=== PATIENT | female | born 1980 | race Caucasian/White ===

== ENCOUNTER 2017-01-12 16:12 | Emergency (ER) | payer OTHER ==
--- NOTE | 2017-01-12 17:02 | DIAGNOSTIC IMAGING REPORT ---
PROCEDURE: XR HUMERUS - LEFT INDICATION: TRAUMA/INJURY TECHNIQUE: Three views left humerus COMPARISON: None. FINDINGS: There is a complete fracture through the mid shaft of the humerus. Side plates and screws are in place from previous distal humeral injury. IMPRESSION: 1. Complete fracture through the mid shaft left humerus
--- NOTE | 2017-01-12 18:08 | ED NURSING NOTES ---
Clinical Report - Nurses [facility] [place] [address] 01/12/2017 16:12 Patient: HU GARDNER TRIAGE Triage time 16:20 Jan 12 2017. Chief Complaint: INJURY TO THE LEFT ARM. Alert. No acute distress. SEPSIS SCREEN: Sepsis Screen. Negative (no infection suspected/documented). --16:25 Damon Escobar R.N. 16:20 01/12/17. BP: 122/80. HR: 60. RR: 16. O2 saturation: 100% on room air. Temp: 97.5 F. Pain level now: 05/12. --16:25 Damon Escobar R.N. Acuity: LEVEL 3. --16:25 Damon Escobar R.N. Weight: 77.1 kg stated. Height/Length: 67 inches Per Patient. BMI: 26.6. --16:20 Damon Escobar R.N. Medications Chantix Oral. --16:23 Damon Escobar R.N. Allergies No Known Drug Allergy. --16:23 Damon Escobar R.N. History Arrived by private vehicle. Historian: patient. Accompanied by friend. This occurred just prior to arrival and today. Mechanism of injury: fell. ( Pt fell from her horse onto her L arm. She impacted with the dirt. She presents today in obvious pain, guarded, her L arm is straight, held against her body. Pt reports a previous fracture to her humerus which required surgical intervention in January of 1999.). She has had numbness. PAST MEDICAL HX: Tetanus status: unknown. Immunizations: status is unknown. Last normal menstrual period now. SOCIAL HX: Light tobacco smoker (cigarette). Occasional alcohol use. History of drug use: marijuana. The patient was not exposed to MRSA. ABUSE ASSESSMENT: Abuse assessment: The patient was asked "Do you feel safe in your home?". No report of abuse. SELF HARM ASSESSMENT: A self harm assessment was performed. The patient answered "no" to the question "Are you here because you tried to hurt yourself?" and "Have you ever tried to hurt yourself before today?". FALL RISK ASSESSMENT: Fall risk assessment completed. No fall risk identified. NUTRITIONAL RISK ASSESSMENT: The nutritional risk assessment revealed no deficiencies. FUNCTIONAL ASSESSMENT: Functional assessment: no impairments noted. LEARNING NEEDS ASSESSMENT: The learning needs assessment revealed no barriers. SKIN INTEGRITY ASSESSMENT: Skin integrity risk assessment completed. No skin integrity risk identified. --16:25 Damon Escobar R.N. Interventions ID band on patient. To treatment room. --16:25 Damon Escobar R.N. PHYSICAL ASSESSMENT Ambulatory to room. GENERAL / NEURO / PSYCH: Oriented X 4. Appears in pain. She has had weakness. She has had numbness. EXTREMITIES: Capillary refill is less than 2 seconds in the extremities. Extremity pulses are within normal limits. Left arm. SKIN: Skin is warm and dry. She has an medium-sized superficial abrasion (L posterior hip). --16:28 Damon Escobar R.N. NURSING PROGRESS NOTES The plan of care for this patient has been created. Patient gowned. Reassurance given. Two patient identifiers checked. Call light placed in reach. Side rails up x 2. Bed placed in lowest position. Patient ready for evaluation- PA notified. ( PA at bedside.). --16:28 Damon Escobar R.N. 16:37 01/12/2017 Phenergan (Promethazine HCl) IM 12.5 mg given. Given in the right deltoid. Allergies verified, confirmed 5 rights and sedative warning given to the patient. --16:37 Damon Escobar R.N. 16:40 01/12/2017 Dilaudid (HYDROmorphone HCl PF) IM 2 mg given. Given in the right ventral gluteus. Allergies verified, confirmed 5 rights and sedative warning given to the patient. --16:40 Damon Escobar R.N. ( XR at bedside, pain and nausea medications given, Pt tolerated well.). --16:43 Damon Escobar R.N. 16:57 01/12/2017 Site #1 started via IV in the right antecubital space with an 20g angiocath, with aseptic technique and good blood return; one attempt. Saline lock flushed with 10 mL saline. --17:03 Damon Escobar R.N. 17:03 01/12/2017 Phenergan IM Response: no adverse reaction pain is improving. --17:03 Damon Escobar R.N. 17:03 01/12/2017 Dilaudid IM Response: no adverse reaction pain is improving. --17:03 Damon Escobar R.N. ( IVIP, Pt resting in bed, states she is comfortable position-sandoval, waiting for pain medications to give her more relief before she is splinted. Pt denies needs, Pt has contacted her mother.). --17:04 Damon Escobar R.N. 17:31 01/12/17. Pain level now: 03/12. --17:31 Damon Escobar R.N. late entry - 17:30. ( Tech at bedside splinting Pt.). --17:53 Damon Escobar R.N. Long arm sugar tong fiberglass upper extremity splint applied to left arm, elbow and forearm by tech. Distal pulses intact, sensation intact and motor within normal limits. Sling applied to left arm by submarine cable equipment technician. --18:05 Lisandra Ayala, FLASH Tech1 18:23 01/12/2017 Dilaudid (HYDROmorphone HCl PF) IVP 1 mg given over 2 minute(s) via site #1. Allergies verified, confirmed 5 rights and sedative warning given to the patient. IV patency established. IV site checked: no pain, redness, or swelling. IV flushed thoroughly pre- and post-medication administration. IVP given by RN. --18:23 Damon Escobar R.N. 18:30 01/12/2017 Site #1 removed upon discharge. Bandaid applied. --18:35 Damon Escobar R.N. DISPOSITION / DISCHARGE 17:57 01/12/17. BP: 125/81. HR: 68. RR: 16. O2 saturation: 97% on room air. Pain level now: 04/12. --17:57 Damon Escobar R.N. Departure time: 18:35 Jan 12 2017. Condition at departure: improved and stable. The goals identified in the patient's plan of care were met. No learning barriers present. Discharge instructions provided and reviewed with the patient and parent. Reviewed warnings (Pt instructed not to drive or consume ETOH while taking Percocet.). Reviewed medication(s) side effects, precautions, dosing and course information. Prescription(s) given to the patient (Percocet 5mg/325 and Zofran ODT 4 mg). Reviewed referral to an orthopedic surgeon for followup (in 7 days). Patient and parent verbalized understanding. Written instructions provided in Panamanian. The patient was discharged home and accompanied by parent. She left the Emergency Department ambulatory and via private vehicle. Parent driving. ( Pt dc'd in stable condition, VSS, ambulatory, pain controlled, Pt's mother is at bedside and is her ride home, pain medication administered prior to DC as ordered. No adverse response.). --18:35 Damon Escobar R.N. 18:36 01/12/17. Temp: deferred. --18:36 Damon Escobar R.N. Locked/Released at 01/13/2017 0:10 by Damon Escobar R.N.
--- NOTE | 2017-01-12 18:08 | ED ORDER SUMMARY ---
..... Patient: HU GARDNER OrderSheet [facility] VisitID: [id number] [address] [place] [address] 36y, F Registration Date/Time: 01/12/2017 ORDER SHEET Weight: 77.1 kg (stated) Allergies: No Known Drug Allergy GENERAL ORDERS: Elbow 3 or 4V Left Urgent (16:29 01/12/2017 EKoroleva P.A.-C) (Ack 16:31 PWeiler ER Tech1) (16:41 MCook R.N.) Humerus Left Urgent (16:43 01/12/2017 EKoroleva P.A.-C) (Ack 16:47 PWeiler ER Tech1) (17:02 MCook R.N.) Splint (UE) (Left) (long arm) (17:07 01/12/2017 EKoroleva P.A.-C) (17:30 MCook R.N.) MEDICATION ORDERS: Dilaudid IM 2 mg (HIGH ALERT MEDICATION, NOW) (16:29 01/12/2017 EKoroleva P.A.-C) (16:40 MCook R.N.) Phenergan IM 12.5 mg (HIGH ALERT MEDICATION, NOW) (16:29 01/12/2017 EKoroleva P.A.-C) (16:37 MCook R.N.) IV FLUIDS: Dilaudid IV 1 mg (HIGH ALERT MEDICATION, NOW) (18:06 01/12/2017 EKoroleva P.A.-C) (Ack 18:12 MCook R.N.) (18:23 MCook R.N.) ORDER SHEET NOTES: [Electronically signed by Ayanna AlvarezAMalia-C (18:54 01/12/2017)] [Electronically signed by Damon Escobar R.N. (00:10 01/13/2017)] [Electronically locked/signed by Damon Escobar R.N. (00:10 01/13/2017)]
--- NOTE | 2017-01-12 18:08 | ED ORDER SUMMARY ---
..... Patient: HU GARDNER OrderSheet [facility] VisitID: [id number] [address] [place] [address] 36y, F Registration Date/Time: 01/12/2017 ORDER SHEET Weight: 77.1 kg (stated) Allergies: No Known Drug Allergy GENERAL ORDERS: Elbow 3 or 4V Left Urgent (16:29 01/12/2017 EKoroleva P.A.-C) (Ack 16:31 PWeiler ER Tech1) (16:41 MCook R.N.) Humerus Left Urgent (16:43 01/12/2017 EKoroleva P.A.-C) (Ack 16:47 PWeiler ER Tech1) (17:02 MCook R.N.) Splint (UE) (Left) (long arm) (17:07 01/12/2017 EKoroleva P.A.-C) (17:30 MCook R.N.) MEDICATION ORDERS: Dilaudid IM 2 mg (HIGH ALERT MEDICATION, NOW) (16:29 01/12/2017 EKoroleva P.A.-C) (16:40 MCook R.N.) Phenergan IM 12.5 mg (HIGH ALERT MEDICATION, NOW) (16:29 01/12/2017 EKoroleva P.A.-C) (16:37 MCook R.N.) IV FLUIDS: Dilaudid IV 1 mg (HIGH ALERT MEDICATION, NOW) (18:06 01/12/2017 EKoroleva P.A.-C) (Ack 18:12 MCook R.N.) (18:23 MCook R.N.) ORDER SHEET NOTES: [Electronically signed by Ayanna AlvarezAMalia-C (18:54 01/12/2017)] [Electronically signed by Damon Escobar R.N. (00:10 01/13/2017)] [Electronically locked/signed by Damon Escobar R.N. (00:10 01/13/2017)]
--- NOTE | 2017-01-12 18:08 | ED CLINICAL REPORT ---
Clinical Report - Physicians/Mid Levels [facility] [address] [place], [place] [address] 01/12/2017 16:12 [id number] Time Seen: 16:35 Hari 12 2016. Arrived- By private vehicle. Historian- patient. HISTORY OF PRESENT ILLNESS Chief Complaint: Injury to the left arm. The injury happened just prior to arrival. Fell (from horse). She sustained a direct blow. Patient is experiencing severe pain. Patient denies injury to the head. ( fell from a posterior exam to the left side, patient was wearing a helmet and denies any injury to her head or LOC. NO sob/ abd pain chest pain. Has been ambulatory .). REVIEW OF SYSTEMS No numbness. All systems otherwise negative, except as recorded above. PAST HISTORY The patient's dominant hand is the right. She has had a prior injury to the same area (surgical fx). Problems: Contusion. Laceration. Tetanus Status. Immunizations. ADHD - Attention Deficit Hyperactivity Disorder. Additional Surgeries: Broken humerus surgery. Medications: Chantix Oral. Allergies: No Known Drug Allergy. SOCIAL HISTORY Smoker- current status unknown. Alcohol use. History of drug use: marijuana. ADDITIONAL NOTES The nursing notes have been reviewed. PHYSICAL EXAM Vital Signs: 01/12/2017 16:20 BP: 122/80. HR: 60. RR: 16. O2 saturation: 100%. Temp: 97.5 F. Pain level now: 10/10. Appearance: Alert. No acute distress. Head: Head atraumatic. Neck: Normal inspection. Neck supple. CVS: Normal heart rate and rhythm. Heart sounds normal. Respiratory: No respiratory distress. Breath sounds normal. No chest wall injury or accessory muscle use. Skin: Skin warm. Normal skin color. Extremities: No signs of infection present in the upper extremities. Left scapula area: No tenderness or swelling. Left clavicle area. No swelling or laceration. Left arm: moderate tenderness and swelling located in the medial and lateral aspect of arm. Neurovascular intact distally. No puncture wound or deformity. Left forearm. Neurovascular intact distally. No swelling. Left wrist. No swelling. No tenderness, swelling or ecchymosis. (good distal ns). Neuro, Vascular and Tendons: Vascular status intact. Capillary refill not prolonged. Sensation intact. Motor intact. Tendon function intact. No tendon injury seen. Neuro: Oriented X 3. No motor deficit. No sensory deficit. LABS, X-RAYS, AND EKG Lt Humerus X-ray: (IMPRESSION: 1. Complete fracture through the mid shaft left humerus Electronically Final signed by:Mehdi Swain MD 01/12/2017 5:03:15 PM). PROGRESS AND PROCEDURES PROCEDURES (Reverse sugar tong on Left side: ns intact, sling placed by tech, checked by me.). Course of Care: patient with a left humerus fracture, discussed the case with , applications support engineer for ortho, who recommends outpatient f/u in 7 days. patient with no other injuries, full range of motion of the hip, no signs of injury to the head, negative neuro exam, abdomen and chest are soft non tender with no signs of injury. Patient given Percocet. Patient here with mom. Splint applied. Patient was in significant amount of pain, was given IM Dilaudid medication upon arrival. 01/12/2017 17:57 BP: 125/81. HR: 68. RR: 16. O2 saturation: 97%. Pain level now: 9/10. 01/12/2017 17:31 Pain level now: 8/10. Patient is stable. Physical exam findings are improved. Symptoms better. Patient/family counseled. Disposition: Discharged. Condition: good. CLINICAL IMPRESSION Closed displaced transverse fracture of the shaft of the left humerus. Fall (From Horse). INSTRUCTIONS Apply ice. Wear sling and fiberglass splint. (call for an appointment to be made in 7 days). Prescription Medications: Percocet 5 mg/325 mg: take 1 tablet orally every 6 hours as needed for pain. Dispense thirty (30). No refill. Substitution is permissible. Zofran ODT 4 mg: take 1 orally every 6 hours for 3 days. Dispense ten (10). No refill. Substitution is permissible. [facility]-up with: [facility], , [address], , [place], [id number] Follow up in seven days. (Electronically signed by KorAyanna rivera P.A.-C 01/12/2017 18:54)
--- NOTE | 2017-01-12 18:08 | ED CLINICAL REPORT ---
Clinical Report - Physicians/Mid Levels [facility] [address] [place], [place] [address] 01/12/2017 16:12 Patient: HU GARDNER [facility] [id number] Time Seen: 16:35 Hari 12 2016. Arrived- By private vehicle. Historian- patient. HISTORY OF PRESENT ILLNESS Chief Complaint: Injury to the left arm. The injury happened just prior to arrival. Fell (from horse). She sustained a direct blow. Patient is experiencing severe pain. Patient denies injury to the head. ( fell from a posterior exam to the left side, patient was wearing a helmet and denies any injury to her head or LOC. NO sob/ abd pain chest pain. Has been ambulatory .). REVIEW OF SYSTEMS No numbness. All systems otherwise negative, except as recorded above. PAST HISTORY The patient's dominant hand is the right. She has had a prior injury to the same area (surgical fx). Problems: Contusion. Laceration. Tetanus Status. Immunizations. ADHD - Attention Deficit Hyperactivity Disorder. Additional Surgeries: Broken humerus surgery. Medications: Chantix Oral. Allergies: No Known Drug Allergy. SOCIAL HISTORY Smoker- current status unknown. Alcohol use. History of drug use: marijuana. ADDITIONAL NOTES The nursing notes have been reviewed. PHYSICAL EXAM Vital Signs: 01/12/2017 16:20 BP: 122/80. HR: 60. RR: 16. O2 saturation: 100%. Temp: 97.5 F. Pain level now: 10/10. Appearance: Alert. No acute distress. Head: Head atraumatic. Neck: Normal inspection. Neck supple. CVS: Normal heart rate and rhythm. Heart sounds normal. Respiratory: No respiratory distress. Breath sounds normal. No chest wall injury or accessory muscle use. Skin: Skin warm. Normal skin color. Extremities: No signs of infection present in the upper extremities. Left scapula area: No tenderness or swelling. Left clavicle area. No swelling or laceration. Left arm: moderate tenderness and swelling located in the medial and lateral aspect of arm. Neurovascular intact distally. No puncture wound or deformity. Left forearm. Neurovascular intact distally. No swelling. Left wrist. No swelling. No tenderness, swelling or ecchymosis. (good distal ns). Neuro, Vascular and Tendons: Vascular status intact. Capillary refill not prolonged. Sensation intact. Motor intact. Tendon function intact. No tendon injury seen. Neuro: Oriented X 3. No motor deficit. No sensory deficit. LABS, X-RAYS, AND EKG Lt Humerus X-ray: (IMPRESSION: 1. Complete fracture through the mid shaft left humerus Electronically Final signed by:Mehdi Swain MD 01/12/2017 5:03:15 PM). PROGRESS AND PROCEDURES PROCEDURES (Reverse sugar tong on Left side: ns intact, sling placed by tech, checked by me.). Course of Care: patient with a left humerus fracture, discussed the case with , disability liaison officer for ortho, who recommends outpatient f/u in 7 days. patient with no other injuries, full range of motion of the hip, no signs of injury to the head, negative neuro exam, abdomen and chest are soft non tender with no signs of injury. Patient given Percocet. Patient here with mom. Splint applied. Patient was in significant amount of pain, was given IM Dilaudid medication upon arrival. 01/12/2017 17:57 BP: 125/81. HR: 68. RR: 16. O2 saturation: 97%. Pain level now: 9/10. 01/12/2017 17:31 Pain level now: 8/10. Patient is stable. Physical exam findings are improved. Symptoms better. Patient/family counseled. Disposition: Discharged. Condition: good. CLINICAL IMPRESSION Closed displaced transverse fracture of the shaft of the left humerus. Fall (From Horse). INSTRUCTIONS Apply ice. Wear sling and fiberglass splint. (call for an appointment to be made in 7 days). Prescription Medications: Percocet 5 mg/325 mg: take 1 tablet orally every 6 hours as needed for pain. Dispense thirty (30). No refill. Substitution is permissible. Zofran ODT 4 mg: take 1 orally every 6 hours for 3 days. Dispense ten (10). No refill. Substitution is permissible. Follow-up with: [facility], , [address], , [place], [address] Follow up in seven days. (Electronically signed by KorAyanna rivera P.A.-C 01/12/2017 18:54)
--- NOTE | 2017-01-13 00:11 | ED DISCHARGE INSTRUCTIONS ---
Patient: HU GARDNER General Instructions [facility] VisitID: [id number] [address] [place] [address] 36y, F Registration Date/Time: 01/12/2017 Closed displaced transverse fracture of the shaft of the left humerus. Fall (From Horse). INSTRUCTIONS Apply ice. Wear sling and fiberglass splint. (call for an appointment to be made in 7 days). Prescription Medications: Percocet 5 mg/325 mg: take 1 tablet orally every 6 hours as needed for pain. Dispense thirty (30). No refill. Substitution is permissible. Zofran ODT 4 mg: take 1 orally every 6 hours for 3 days. Dispense ten (10). No refill. Substitution is permissible. Follow-up with: [facility], , [address], [place], [id number] Follow up in seven days. ADDITIONAL INFORMATION Mechanical Fall You have had a fall today. It appears that the cause is mechanical. That means that you slipped, tripped or lost your balance. If your fall had been due to fainting or a seizure, further tests would be required. Home Care: Rest today and resume your normal activities when you are feeling back to normal. If you were injured during the fall, follow the advice from your doctor regarding care of your injury. You may use acetaminophen (Tylenol) or ibuprofen (Motrin, Advil) to control pain, unless another pain medicine was prescribed. [NOTE: If you have chronic liver or kidney disease or ever had a stomach ulcer or GI bleeding, talk with your doctor before using these medicines.] Fall Prevention: Was there anything that caused your fall that can be fixed, removed, or replaced? Make your home safe by keeping walkways clear of objects you may trip over. Use non-slip pads under rugs. Do not walk in poorly lit areas. Do not stand on chairs or wobbly ladders. Use caution when reaching overhead or looking upward. This position can cause a loss of balance. Be sure your shoes fit properly, have non-slip bottoms and are in good condition. Be cautious when going up and down curbs, and walking on uneven sidewalks. If your balance is poor, consider using a cane or walker. Stay as active as you can. Balance, flexibility, strength, and endurance all come from exercise. They all play a role in preventing falls. Follow Up with your doctor or as advised by our staff. Get Prompt Medical Attention if any of the following occur: Repeated mechanical falls, or unexplained falls Dizziness, fainting or seizure Severe headache Chest pain or shortness of breath Palpitations (very rapid or very slow or irregular heartbeat) Blood in vomit, stools (black or red color) Weakness of an arm or leg or one side of the face Difficulty with speech or vision Shoulder Fracture [Shoulder Immobilizer] You have a break (fracture) of the shoulder. This may be a small crack in the bone. Or it may be a major break with the broken parts pushed out of position. If there is only a crack in the bone and no bone fragments are out of place, a shoulder fracture is usually treated with a shoulder immobilizer. This is a special type of sling. (Casts are not used for this type of fracture.) Healing of the bone usually occurs in 4-6 weeks. More serious injuries may require surgery to put the bones back into the correct position for healing. Home Care: Leave the shoulder immobilizer in place. This will support the injured arm at your side. This is the best position for bone healing. The shoulder immobilizer is adjustable. If it becomes loose, adjust it so that your forearm is horizontal (level with the ground). Your hand should be level with the elbow. Apply an ice pack (ice cubes in a plastic bag, wrapped in a towel) over the injured area for 20 minutes every 1-2 hours the first day. Continue with ice packs 3-4 times a day for the next two days, then as needed for the relief of pain and swelling. You may use acetaminophen (Tylenol) or ibuprofen (Motrin, Advil) to control pain, unless another pain medicine was prescribed. (NOTE : If you have chronic liver or kidney disease or ever had a stomach ulcer or GI bleeding, talk with your doctor before using these medicines.) Do not remove the sling before your next exam unless you were instructed to do so. Follow Up with your doctor in one week, or as advised by our staff, to be sure the bone is healing properly. A shoulder joint will become stiff if left in a sling for too long. Ask your doctor when it is safe to begin [id number] exercises. Get Prompt Medical Attention if any of the following occur: Fingers become swollen, cold, blue, numb or tingly Large amount of swelling or bruising of the shoulder or upper arm Increasing shoulder pain or arm swelling Sling A sling is designed to support your arm in a position of rest. It is used for injuries of the hand, forearm, upper arm, and shoulder. A shoulder that is immobilized too long can become stiff and lose range of motion. Follow up with your doctor as advised and do not use the sling longer than directed. Home Use: Leave the sling in place as long as directed by your doctor. Unless told otherwise, you may remove it when bathing, dressing, and when you go to sleep. The sling is adjustable. If it becomes loose, adjust it so that your forearm is horizontal (level with the ground). Your hand should be level with the elbow. Aircast Traditional splints and casts for the foot and ankle protect the injury by preventing movement at the joints. However, many injuries heal better and faster if the injured joint can be moved, while protected at the same time. This is the reason for using an Aircast. There are two common type of AirCasts: 1) Air-Stirrup ankle splint This is often used to treat ankle sprains. It contains padded air cells in a plastic frame that fits into your shoe. This allows you to walk while preventing the ankle joint from rolling in or out causing re-injury. Ankle sprains can take 4-6 weeks to heal. Persons with severe injuries or over age 60 may require more time to heal. During that time, you are prone to re-injury by suddenly twisting your ankle again while the ligaments are still weak. When treating a sprain, the Air-Stirrup splint should be worn whenever walking for at least four weeks, or as long as you continue to have ankle pain. You should continue to wear it at least 6 weeks whenever running, playing sports or any activity where there is increased risk of re-injury. Talk to your doctor for specific advice about the treatment of your condition. 2) SP-Walker boot This is a short boot that provides support and protection to the foot and ankle while allowing you to walk. It contains padded air cells that provide compression and help circulation. It is used for both foot and ankle injuries - both sprains and minor fractures. Talk to your doctor for specific advice about the treatment of your condition. Air-Stirrup and SP-Walker are trademarks of [employer]. For more information about their products, see www.[email or web address]. Oxycodone Hydrochloride, Acetaminophen Oral tablet What is this medicine? ACETAMINOPHEN; OXYCODONE (a set a ANSLEY janette fen; ox i KOE done) is a pain reliever. It is used to treat mild to moderate pain. How should I use this medicine? Take this medicine by mouth with a full glass of water. Follow the directions on the prescription label. Take your medicine at regular intervals. Do not take your medicine more often than directed. Talk to your press hand regarding the use of this medicine in children. Special care may be needed. Patients over 65 years old may have a stronger reaction and need a smaller dose. What side effects may I notice from receiving this medicine? Side effects that you should report to your doctor or health healthcare administration internship as soon as possible: allergic reactions like skin rash, itching or hives, swelling of the face, lips, or tongue breathing difficulties, wheezing confusion light headedness or fainting spells severe stomach pain yellowing of the skin or the whites of the eyes Side effects that usually do not require medical attention (report to your doctor or health healthcare administration internship if they continue or are bothersome): dizziness drowsiness nausea vomiting What may interact with this medicine? alcohol antihistamines barbiturates like amobarbital, butalbital, butabarbital, methohexital, pentobarbital, phenobarbital, thiopental, and secobarbital benztropine drugs for bladder problems like solifenacin, trospium, oxybutynin, tolterodine, hyoscyamine, and methscopolamine drugs for breathing problems like ipratropium and tiotropium drugs for certain stomach or intestine problems like propantheline, homatropine methylbromide, glycopyrrolate, atropine, belladonna, and dicyclomine general anesthetics like etomidate, ketamine, nitrous oxide, propofol, desflurane, enflurane, halothane, isoflurane, and sevoflurane medicines for depression, anxiety, or psychotic disturbances medicines for sleep muscle relaxants naltrexone narcotic medicines (opiates) for pain phenothiazines like perphenazine, thioridazine, chlorpromazine, mesoridazine, fluphenazine, prochlorperazine, promazine, and trifluoperazine scopolamine tramadol trihexyphenidyl What if I miss a dose? If you miss a dose, take it as soon as you can. If it is almost time for your next dose, take only that dose. Do not take double or extra doses. Where should I keep my medicine? Keep out of the reach of children. This medicine can be abused. Keep your medicine in a safe place to protect it from theft. Do not share this medicine with anyone. Selling or giving away this medicine is dangerous and against the law. Store at room temperature between 20 and 25 degrees C (68 and 77 degrees F). Keep container tightly closed. Protect from light. This medicine may cause accidental overdose and if it is taken by other adults, children, or pets. Flush any unused medicine down the toilet to reduce the chance of harm. Do not use the medicine after the expiration date. What should I tell my health care provider before I take this medicine? They need to know if you have any of these conditions: brain tumor Crohn's disease, inflammatory bowel disease, or ulcerative colitis drink more than 3 alcohol containing drinks per day drug abuse or addiction head injury heart or circulation problems kidney disease or problems going to the bathroom liver disease lung disease, asthma, or breathing problems an unusual or allergic reaction to acetaminophen, oxycodone, other opioid analgesics, other medicines, foods, dyes, or preservatives or trying to get breast-feeding What should I watch for while using this medicine? Tell your doctor or health healthcare administration internship if your pain does not go away, if it gets worse, or if you have new or a different type of pain. You may develop tolerance to the medicine. Tolerance means that you will need a higher dose of the medication for pain relief. Tolerance is normal and is expected if you take this medicine for a long time. Do not suddenly stop taking your medicine because you may develop a severe reaction. Your body becomes used to the medicine. This does NOT mean you are addicted. Addiction is a behavior related to getting and using a drug for a non-medical reason. If you have pain, you have a medical reason to take pain medicine. Your doctor will tell you how much medicine to take. If your doctor wants you to stop the medicine, the dose will be slowly lowered over time to avoid any side effects. You may get drowsy or dizzy. Do not drive, use machinery, or do anything that needs mental alertness until you know how this medicine affects you. Do not stand or sit up quickly, especially if you are an older patient. This reduces the risk of dizzy or fainting spells. Alcohol may interfere with the effect of this medicine. Avoid alcoholic drinks. There are different types of narcotic medicines (opiates) for pain. If you take more than one type at the same time, you may have more side effects. Give your health care provider a list of all medicines you use. Your doctor will tell you how much medicine to take. Do not take more medicine than directed. Call emergency for help if you have problems breathing. The medicine will cause constipation. Try to have a bowel movement at least every 2 to 3 days. If you do not have a bowel movement for 3 days, call your doctor or health healthcare administration internship. Do not take Tylenol (acetaminophen) or medicines that have acetaminophen with this medicine. Too much acetaminophen can be very dangerous. Many nonprescription medicines contain acetaminophen. Always read the labels carefully to avoid taking more acetaminophen. You have been given the following additional information: Fall, Mechanical Fracture, Shoulder Sling Aircast Splint And Boot Oxycodone Hydrochloride, Acetaminophen Oral tablet (Electronically signed by Ayanna Alvarez P.A.-C 01/12/2017 18:54)
--- NOTE | 2017-01-13 00:12 | ED MAR SUMMARY ---
..... Medication Administration Record [facility] [address] [place] [address] Patient: HU GARDNER Visit ID: [id number] 36y, F Weight: 77.1 kg Height/Length: 67 in BMI: 26.6 ALLERGIES: No Known Drug Allergy Given 16:37 01/12/2017 Damon Escobar R.N. Medication Administered: PHENERGAN [IM] (PROMETHAZINE HCL), Dose: 12.5 mg IM. Medication Ordered: Phenergan IM 12.5 mg (HIGH ALERT MEDICATION, NOW). Given 16:40 01/12/2017 Damon Escobar R.N. Medication Administered: DILAUDID [IM] (HYDROMORPHONE HCL PF), Dose: 2 mg IM. Medication Ordered: Dilaudid IM 2 mg (HIGH ALERT MEDICATION, NOW). Given 18:23 01/12/2017 Damon Escobar R.N. Medication Administered: DILAUDID [IVP] (HYDROMORPHONE HCL PF), Dose: 1 mg IVP over 2 minute(s), Site: #1 right AC. Medication Ordered: Dilaudid IV 1 mg (HIGH ALERT MEDICATION, NOW).
--- NOTE | 2017-01-13 00:12 | ED MAR SUMMARY ---
..... Medication Administration Record [facility] [address] [place] [address] Patient: HU GARDNER Visit ID: [id number] 36y, F Weight: 77.1 kg Height/Length: 67 in BMI: 26.6 ALLERGIES: No Known Drug Allergy Given 16:37 01/12/2017 Damon Escobar R.N. Medication Administered: PHENERGAN [IM] (PROMETHAZINE HCL), Dose: 12.5 mg IM. Medication Ordered: Phenergan IM 12.5 mg (HIGH ALERT MEDICATION, NOW). Given 16:40 01/12/2017 Damon Escobar R.N. Medication Administered: DILAUDID [IM] (HYDROMORPHONE HCL PF), Dose: 2 mg IM. Medication Ordered: Dilaudid IM 2 mg (HIGH ALERT MEDICATION, NOW). Given 18:23 01/12/2017 Damon Escobar R.N. Medication Administered: DILAUDID [IVP] (HYDROMORPHONE HCL PF), Dose: 1 mg IVP over 2 minute(s), Site: #1 right AC. Medication Ordered: Dilaudid IV 1 mg (HIGH ALERT MEDICATION, NOW).
--- NOTE | 2017-01-13 00:12 | ED MED RECONCILIATION SUMMARY ---
Patient: HU GARDNER Medication Reconciliation Report [facility] VisitID: [id number] [address] [place] [address] 36y, F Registration Date/Time: 01/12/2017 Weight: 77.1 kg Height/Length: 67 in. BMI: 26.6 ALLERGIES: No Known Drug Allergy The patient's Home Medications are listed below: THE FOLLOWING MEDICATIONS NEED TO BE RECONCILED: Chantix Oral The source(s) of the original Home Medication information: Not obtained. The following Medications were given to the patient in the Emergency Department: Phenergan [IM] IM 12.5 mg, administered: 01/12/2017 4:37:00 PM Dilaudid [IM] IM 2 mg, administered: 01/12/2017 4:40:00 PM Dilaudid [IVP] IVP 1 mg, administered: 01/12/2017 6:23:00 PM The following Medications were prescribed to the patient: Percocet 5 mg/325 mg: take 1 tablet orally every 6 hours as needed for pain. Dispense thirty (30). No refill. Substitution is permissible. -- Ayanna Alvarez, P.A.-C Zofran ODT 4 mg: take 1 orally every 6 hours for 3 days. Dispense ten (10). No refill. Substitution is permissible. -- Ayanna Alvarez, P.A.-C
--- NOTE | 2017-01-13 00:12 | ED MED RECONCILIATION SUMMARY ---
Patient: HU GARDNER Medication Reconciliation Report [facility] VisitID: [id number] [address] [place] [address] 36y, F Registration Date/Time: 01/12/2017 Weight: 77.1 kg Height/Length: 67 in. BMI: 26.6 ALLERGIES: No Known Drug Allergy The patient's Home Medications are listed below: THE FOLLOWING MEDICATIONS NEED TO BE RECONCILED: Chantix Oral The source(s) of the original Home Medication information: Not obtained. The following Medications were given to the patient in the Emergency Department: Phenergan [IM] IM 12.5 mg, administered: 01/12/2017 4:37:00 PM Dilaudid [IM] IM 2 mg, administered: 01/12/2017 4:40:00 PM Dilaudid [IVP] IVP 1 mg, administered: 01/12/2017 6:23:00 PM The following Medications were prescribed to the patient: Percocet 5 mg/325 mg: take 1 tablet orally every 6 hours as needed for pain. Dispense thirty (30). No refill. Substitution is permissible. -- Ayanna Alvarez, P.A.-C Zofran ODT 4 mg: take 1 orally every 6 hours for 3 days. Dispense ten (10). No refill. Substitution is permissible. -- Ayanna Alvarez, P.A.-C
== END 2017-01-12 18:33 | disposition home or self-care (01) ==
LOC: ED SRH 16:12
DX: S42.322A Displaced transverse fracture of shaft of humerus, left arm, initial encounter for closed fracture (principal); V80.010A Animal-rider injured by fall from or being thrown from horse in noncollision accident, initial encounter; Y93.52 Activity, horseback riding; Y99.8 Other external cause status; Y92.9 Unspecified place or not applicable